=== PATIENT | male | born 1925 | race Caucasian/White ===

== ENCOUNTER → 2017-01-15 | Outpatient (CLI) | payer BC, MEDICARE ==
[~2017-01-15] VITALS: Ht 168.9 cm; Wt 110.0 kg
[~2017-01-15] MED LIST: ATOR40TA28 PO; FURO20 PO; LISI-660 PO; TAMS0.4C32 PO
[2017-01-15 13:33] VITALS: BP 117/64
== END | disposition home or self-care (01) ==
LOC: SRCNTR 12:33
PROVIDERS: ATTEND Internal Medicine
DX: J44.9 Chronic obstructive pulmonary disease, unspecified (principal); J18.9 Pneumonia, unspecified organism; I10 Essential (primary) hypertension; I25.10 Atherosclerotic heart disease of native coronary artery without angina pectoris; J84.10 Pulmonary fibrosis, unspecified; Z87.891 Personal history of nicotine dependence
CPT/HCPCS: G0463

== ENCOUNTER → 2017-02-19 | Outpatient (CLI) | payer MEDICARE, BC | END | disposition home or self-care (01) | LOC: RADPV 13:01 | PROVIDERS: ATTEND Internal Medicine | DX: J18.9 Pneumonia, unspecified organism (principal); J98.4 Other disorders of lung; R91.8 Other nonspecific abnormal finding of lung field; I70.0 Atherosclerosis of aorta | CPT/HCPCS: 71020 ==

== ENCOUNTER → 2017-03-05 | Outpatient (CLI) | payer MEDICARE, BC ==
[~2017-03-05] VITALS: Ht 167.6 cm; Wt 107.7 kg
[2017-03-05 13:43] VITALS: BP 128/64
== END | disposition home or self-care (01) ==
LOC: SRCNTR 13:38
PROVIDERS: ATTEND Internal Medicine
DX: I25.10 Atherosclerotic heart disease of native coronary artery without angina pectoris (principal); J44.9 Chronic obstructive pulmonary disease, unspecified; J18.9 Pneumonia, unspecified organism; J84.10 Pulmonary fibrosis, unspecified; R94.2 Abnormal results of pulmonary function studies; Z95.5 Presence of coronary angioplasty implant and graft
CPT/HCPCS: G0463

== ENCOUNTER → 2017-05-28 | Outpatient (CLI) | payer MEDICARE, BC ==
[~2017-05-28] VITALS: Ht 167.6 cm; Wt 109.8 kg
[~2017-05-28] MED LIST changes: +ALLO100T PO; +ASPI81 PO; +LEVO100 PO; +METO50 PO; +MULT1CAP32 PO
[2017-05-28 13:30] VITALS: BP 102/56
== END | disposition home or self-care (01) ==
LOC: SRCNTR 13:25
PROVIDERS: ATTEND Internal Medicine
DX: J44.9 Chronic obstructive pulmonary disease, unspecified (principal); I10 Essential (primary) hypertension; I25.10 Atherosclerotic heart disease of native coronary artery without angina pectoris; J84.10 Pulmonary fibrosis, unspecified; Z79.82 Long term (current) use of aspirin; Z95.5 Presence of coronary angioplasty implant and graft
CPT/HCPCS: G0463

== ENCOUNTER → 2017-10-01 | Outpatient (CLI) | payer MEDICARE, BC ==
[~2017-10-01] VITALS: Ht 167.6 cm; Wt 108.0 kg
[2017-10-01 13:58] VITALS: BP 141/83
== END | disposition home or self-care (01) ==
LOC: SRCNTR 13:02
PROVIDERS: ATTEND Internal Medicine
DX: J44.0 Chronic obstructive pulmonary disease with (acute) lower respiratory infection (principal); I10 Essential (primary) hypertension; I25.10 Atherosclerotic heart disease of native coronary artery without angina pectoris; J18.9 Pneumonia, unspecified organism; J84.10 Pulmonary fibrosis, unspecified; Z79.82 Long term (current) use of aspirin
CPT/HCPCS: G0463